=== PATIENT | female | born 1985 | race Asian ===

== ENCOUNTER 2017-08-22 23:49 | Emergency (ER) | payer MEDICARE ==
[~2017-08-22] VITALS: Ht 165.1 cm; Wt 54.4 kg
[2017-08-23] VITALS: BP_SYST 128
[2017-08-23] MEDS ORDERED: NACL 0.9% 1,000 ML IV ONE (00:46)
[2017-08-23] MEDS ORDERED: KETOROLAC TROMETHAMINE 15 MG VIAL IVP ONE (01:00)
[2017-08-23] MEDS ORDERED: LORazepam 2 MG/ML VIAL (FOR ER USE) IVP ONE (01:00)
[2017-08-23 05:45] VITALS: BP_SYST 98
== END 2017-08-23 | disposition home or self-care (01) ==
LOC: SED 23:49
DX: F41.9 Anxiety disorder, unspecified (principal); F45.8 Other somatoform disorders; T37.5X5A Adverse effect of antiviral drugs, initial encounter; Y92.89 Other specified places as the place of occurrence of the external cause
CPT/HCPCS: 96374; 96375; 99284; J1885; J2060; J7030

== ENCOUNTER 2023-11-23 11:07 | Emergency (ER) | payer BC, MEDICARE ==
[~2023-11-23] VITALS: Ht 165.1 cm; Wt 67.1 kg
[2023-11-23 11:19] VITALS: BP_SYST 120; PULSE 73; RESP 16; TEMP 97.2; O2SAT 99
[2023-11-23 11:40] LABS: BASOPHILS # (AUTO) 0.1 K/uL (0.0-0.2); BASOPHILS % (AUTO) 0.8 % (0.0-2.0); EOSINOPHILS # (AUTO) 0.2 K/uL (0.0-0.4); EOSINOPHILS % (AUTO) 2.7 % (0.0-4.0); HEMATOCRIT 37.7 % (36-48); LYMPHOCYTES # (AUTO) 2.4 K/uL (1.0-5.5); LYMPHOCYTES % (AUTO) 36.5 % (20.5-51.5); MEAN CORPUSCULAR HEMOGLOBIN 25 pg (27-31); MEAN CORPUSCULAR HGB CONC 32 % (32-36); MEAN CORPUSCULAR VOLUME 77 fL (79.0-98.0); MONOCYTES # (AUTO) 0.5 K/uL (0.0-1.0); MONOCYTES % (AUTO) 7.7 % (1.7-9.3); NEUTROPHILS # (AUTO) 3.5 K/uL (1.8-7.7); NEUTROPHILS % (AUTO) 52.3 % (40.0-70.0); PLATELET COUNT (AUTO) 270 K/uL (130-430); RED BLOOD CELL COUNT(AUTO) 4.88 MIL/uL (4.2-6.2); RED CELL DISTRIBUTION WIDTH 14.7 % (9.0-15.0); WHITE BLOOD COUNT (AUTO) 6.6 K/uL (4.8-10.8)
[2023-11-23 11:58] LABS: PROTHROMBIN TIME 10.4 SECS (9.5-12.5)
[2023-11-23 12:53] VITALS: BP_SYST 120; PULSE 73; RESP 16; TEMP 97.2; O2SAT 99
== END 2023-11-23 13:21 | disposition home or self-care (01) ==
LOC: SED 11:07
DX: N93.8 Other specified abnormal uterine and vaginal bleeding (principal)
CPT/HCPCS: 36415; 84702; 85025; 85610; 85730; 86900; 86901; 99283